=== PATIENT | female | born 1990 | race Caucasian/White ===

== ENCOUNTER 2023-12-10 23:34 | Emergency (ER) | payer BC, SELFPAY ==
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
[2023-12-10 23:44] VITALS: BP 148/98; PULSE 133; O2SAT 98
[2023-12-10 23:49] VITALS: BMI 26.7
[2023-12-10 23:59] VITALS: BP 129/85; PULSE 73; RESP 18; TEMP 36.8; O2SAT 98
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
[2023-12-11] MEDS: Acetaminophen 325 MG TABLET 975 MG PO (00:30)
[2023-12-11 01:22] VITALS: BP 129/85; PULSE 73; RESP 18; TEMP 36.7; O2SAT 98
== END 2023-12-11 01:25 | disposition home or self-care (01) ==
PROVIDERS: Emergency Provider Emergency Medicine Emergency Medical Services
DX: S00.83XA Contusion of other part of head, initial encounter (principal); H11.31 Conjunctival hemorrhage, right eye; S00.11XA Contusion of right eyelid and periocular area, initial encounter; Y04.2XXA Assault by strike against or bumped into by another person, initial encounter; R51.9 Headache, unspecified; Z72.89 Other problems related to lifestyle; Z63.0 Problems in relationship with spouse or partner; Y93.9 Activity, unspecified; Y92.009 Unspecified place in unspecified non-institutional (private) residence as the place of occurrence of the external cause; Y99.9 Unspecified external cause status
CPT/HCPCS: 70450; 70486; 72125; 99284